=== PATIENT | female | born 1980 | race Caucasian/White ===

== ENCOUNTER 2019-02-01 19:18 | Emergency (ER) | payer SELFPAY ==
[~2019-02-01] VITALS: Ht 154.9 cm; Wt 108.9 kg
[2019-02-01 19:20] VITALS: BP 141/90
--- NOTE | 2019-02-01 19:26 | NUR ---
PT TAKEN TO BED 8
--- NOTE | 2019-02-01 19:36 | NUR ---
PT TO ED WITH C/O RLQ ABD PAIN SUDDEN ONSET 20 MINS AGO. PT DENIES N/V/D. REPORTS HEMATURIA X1 EPISODE PRIOR TO ARRIVAL. ABD IS SOFT, NON TENDER. BOWEL SOUNDS PRESENT. PT REPORTS MILD PAIN UPON PALPATION. PT PLACED INTO BED, PENDING MD ANDINO. PMH--MANNY SUAZO
[2019-02-01] MEDS ORDERED: ONDANSETRON 4 MG/2 ML VIAL IVP ONE (19:50)
[2019-02-01] MEDS ORDERED: NACL 0.9% 1,000 ML IV ONE (19:50)
[2019-02-01] MEDS ORDERED: MORPHINE SULFATE 4 MG/ML SYR IVP ONE (19:50)
[2019-02-01 20:14] LABS: BASOPHILS % (AUTO) 0.3 % (0.0-2.0); EOSINOPHILS # (AUTO) 0.1 K/uL (0-0.4); EOSINOPHILS % (AUTO) 0.9 % (0.0-4.0); HEMATOCRIT 40.7 % (36-48); HEMOGLOBIN 13.9 g/dL (12.0-16.0); LYMPHOCYTES # (AUTO) 2.7 K/uL (2.5-16.5); LYMPHOCYTES % (AUTO) 26.8 % (20.5-51.1); MEAN CORPUSCULAR HEMOGLOBIN 29 pg (27-31); MEAN CORPUSCULAR HGB CONC 34 g/dL (33-37); MEAN CORPUSCULAR VOLUME 84.8 fL (80-94); MONOCYTES # (AUTO) 0.5 K/uL (0.8-1.0); MONOCYTES % (AUTO) 4.8 % (1.7-9.3); NEUTROPHILS # (AUTO) 6.9 K/uL (1.8-7.7); NEUTROPHILS % (AUTO) 67.2 % (42.2-75.2); PLATELET COUNT (AUTO) 180 K/uL (140-450); RED CELL DISTRIBUTION WIDTH 13.9 % (11.6-13.7); WHITE BLOOD COUNT (AUTO) 10.2 K/uL (4.8-10.8)
[2019-02-01 20:22] LABS: APPEARANCE,URINE CLOUDY (CLEAR); BILIRUBIN,URINE 2+ (NEGATIVE); BLOOD, URINE 3+ (NEGATIVE); COLOR,URINE BROWN (YELLOW); LEUKOCYTE ESTERASE ,URINE NEGATIVE (NEGATIVE); NITRITE, URINE POSITIVE (NEGATIVE); PH,URINE 5.5 (5.0-9.0); UGLUCOSE 3+ (NEGATIVE)
[2019-02-01 20:28] LABS: RBC,URINE TOO NUMEROUS TO COUN /HPF (0-5)
--- NOTE | 2019-02-01 20:30 | NUR ---
Ultrasound at bedside.
--- NOTE | 2019-02-01 20:41 | NUR ---
PT TAKEN TO CT
[2019-02-01 20:50] LABS: ANION GAP 13.5 (8-16); CARBON DIOXIDE 29.4 mmol/L (21-32); CREATININE 0.7 mg/dL (0.6-1.3); POTASSIUM 3.9 mmol/L (3.5-5.1)
--- NOTE | 2019-02-01 20:52 | NUR ---
RETURN FROM CT
[2019-02-01 20:56] LABS: ALBUMIN 3.3 g/dL (3.4-5.0); TOTAL BILIRUBIN 0.9 mg/dL (0.0-1.0)
[2019-02-01 21:47] VITALS: BP 123/65
--- NOTE | 2019-02-01 21:47 | NUR ---
Patient discharged with v/s stable. Written and verbal after care instructions given and explained. Patient alert, oriented and verbalized understanding of instructions. Ambulatory with steady gait. All questions addressed prior to discharge. ID band removed. Patient advised to follow up with PMD. Rx of KEFLEX, NAPROSYN given. Patient educated on indication of medication including possible reaction and side effects. Opportunity to ask questions provided and answered.
== END 2019-02-01 21:47 | disposition home or self-care (01) ==
LOC: MED 19:18
DX: N39.0 Urinary tract infection, site not specified (principal); E11.9 Type 2 diabetes mellitus without complications
CPT/HCPCS: 36415; 74176; 76705; 80053; 81001; 81025; 83690; 85025; 87086; 96374; 96375; 99284; J2270; J2405; J7030; Q0092

== ENCOUNTER 2019-06-11 10:04 | Emergency (ER) | payer SELFPAY ==
[~2019-06-11] VITALS: Ht 154.9 cm; Wt 143.3 kg
[2019-06-11 10:07] VITALS: BP 127/80
[2019-06-11] MEDS ORDERED: IBUPROFEN 400 MG TAB PO ONE (10:30)
--- NOTE | 2019-06-11 10:30 | NUR ---
39F C/O RIGHT WRIST PAIN CONSTANT, 9/10 X ONE WEEK, DENIES TRAUMA. NO SWELLING NOTED. TOOK TYLENOL LAST NIGHT WITHOUT RELIEF. BS: 185 HX: DM TX: INSULIN
--- NOTE | 2019-06-11 10:49 | NUR ---
PLACED ORTHOGLASS THUMB SPICA ON PT'S RIGHT WRIST
[2019-06-11 11:07] VITALS: BP 118/73
== END 2019-06-11 11:07 | disposition home or self-care (01) ==
LOC: MED 10:09
DX: M65.4 Radial styloid tenosynovitis [de Quervain] (principal); E11.9 Type 2 diabetes mellitus without complications
CPT/HCPCS: 82948; 99283

== ENCOUNTER 2020-07-09 23:48 | Emergency (ER) | payer SELFPAY ==
[~2020-07-09] VITALS: Ht 154.9 cm; Wt 148.3 kg
[2020-07-10 00:18] VITALS: BP 157/80
--- NOTE | 2020-07-10 00:20 | NUR ---
8/10 RUQ PAIN THAT RADIATES TO BACK X 2.5 WEEKS. DENIES N/V/D, DENIES RESPIRATORY SYMPTOMS NKA MED HX: DM2 RX: HESHAM REY
[2020-07-10 01:00] LABS: BASOPHILS % (AUTO) 0.3 % (0.0-2.0); EOSINOPHILS # (AUTO) 0.1 K/uL (0-0.4); EOSINOPHILS % (AUTO) 1.3 % (0.0-4.0); HEMATOCRIT 44.3 % (36-48); HEMOGLOBIN 14.6 g/dL (12.0-16.0); LYMPHOCYTES # (AUTO) 3.7 K/uL (2.5-16.5); LYMPHOCYTES % (AUTO) 36.1 % (20.5-51.1); MEAN CORPUSCULAR HEMOGLOBIN 29 pg (27-31); MEAN CORPUSCULAR HGB CONC 33 g/dL (33-37); MEAN CORPUSCULAR VOLUME 86.9 fL (80-94); MONOCYTES # (AUTO) 0.6 K/uL (0.8-1.0); MONOCYTES % (AUTO) 5.3 % (1.7-9.3); NEUTROPHILS # (AUTO) 5.9 K/uL (1.8-7.7); PLATELET COUNT (AUTO) 179 K/uL (140-450); RED CELL DISTRIBUTION WIDTH 13.8 % (11.6-13.7); WHITE BLOOD COUNT (AUTO) 10.4 K/uL (4.8-10.8)
[2020-07-10 01:01] LABS: APPEARANCE,URINE CLEAR (CLEAR); BILIRUBIN,URINE NEGATIVE (NEGATIVE); BLOOD, URINE NEGATIVE (NEGATIVE); COLOR,URINE YELLOW (YELLOW); LEUKOCYTE ESTERASE ,URINE NEGATIVE (NEGATIVE); NITRITE, URINE NEGATIVE (NEGATIVE); UGLUCOSE 2+ (NEGATIVE)
[2020-07-10 01:14] LABS: ALBUMIN 3.6 g/dL (3.4-5.0); ANION GAP 15.7 (8-16); CARBON DIOXIDE 25.2 mmol/L (21-32); CREATININE 0.8 mg/dL (0.6-1.3); POTASSIUM 3.9 mmol/L (3.5-5.1); TOTAL BILIRUBIN 0.9 mg/dL (0.0-1.0)
[2020-07-10 01:14] LABS: RBC,URINE NONE SEEN /HPF (0-5); WBC,URINE NONE SEEN /HPF (0-5)
--- NOTE | 2020-07-10 01:20 | NUR ---
PT AMBULATED TO BED 6 WITH STEADY GAIT
[2020-07-10 03:05] VITALS: BP 157/80
--- NOTE | 2020-07-10 03:05 | NUR ---
PT WAS D/C WITH [facility]SS. PT WAS INSTRUCTED TO FOLLOW UP WITH PCP AND WAS EDUCATED ON IN HOME CARE INSTRCUTIONS. PT DENIES PAIN AT THIS TIME 0/10. NO SIGN OF DISTRESS NOTED. PT WAS ABLE TO AMBULATE OUT OF ER.
== END 2020-07-10 03:05 | disposition home or self-care (01) ==
LOC: MED 23:48
DX: R10.11 Right upper quadrant pain (principal); E11.9 Type 2 diabetes mellitus without complications
CPT/HCPCS: 36415; 80053; 81001; 83690; 85025; 99283; 99284

== ENCOUNTER 2021-01-22 15:01 | Emergency (ER) | payer SELFPAY ==
[~2021-01-22] VITALS: Ht 154.9 cm; Wt 147.4 kg
[2021-01-22 15:11] VITALS: BP 161/93
--- NOTE | 2021-01-22 15:15 | NUR ---
40 YO F BIB SELF FOR C/C OF 10/10 SHARP R LOWER BACK TENDERNESS THAT RADIATES TO RLQ AND PELVIC AREA X 3WEEKS. PT DENIES DYSURIA/HEMATURIA. PT HAS BEEN TAKING OTC MEDS FOR PAIN WITH LITTLE RELIEF OF PAIN. PT DENIES FEVER, COUGH, N/V/D. LBM WAS YESTERDAY SOFT AND FORMED. BED LOCKED AND IN LOWEST POSITION. SIDE RAILS X1. MED HX: DM2 NKA
--- NOTE | 2021-01-22 15:51 | NUR ---
DR. ANNE AT BEDSIDE EVALUATING PT
[2021-01-22] MEDS ORDERED: KETOROLAC 60 MG/2 ML VIAL IM ONE (15:55)
--- NOTE | 2021-01-22 16:10 | NUR ---
PT TAKEN TO CT VIA WHEELCHAIR
[2021-01-22 16:18] LABS: APPEARANCE,URINE CLEAR (CLEAR); BILIRUBIN,URINE NEGATIVE (NEGATIVE); BLOOD, URINE NEGATIVE (NEGATIVE); COLOR,URINE YELLOW (YELLOW); LEUKOCYTE ESTERASE ,URINE NEGATIVE (NEGATIVE); NITRITE, URINE NEGATIVE (NEGATIVE); UGLUCOSE 3+ (NEGATIVE)
--- NOTE | 2021-01-22 17:00 | NUR ---
PT REPORTS 0/10 PAIN AT THIS TIME.
[2021-01-22] MEDS ORDERED: NAPR-54 PO ×2 (17:30→17:51)
[2021-01-22 18:06] VITALS: BP 109/20
== END 2021-01-22 18:06 | disposition home or self-care (01) ==
LOC: MED 15:01
DX: R10.9 Unspecified abdominal pain (principal); E11.9 Type 2 diabetes mellitus without complications; Z79.899 Other long term (current) drug therapy
CPT/HCPCS: 74176; 81003; 81025; 96372; 99284; J1885